=== PATIENT | male | born 1985 | race Two or more races ===

== ENCOUNTER 2019-05-25 19:55 | Emergency (ER) | payer SELFPAY ==
[~2019-05-25] VITALS: Ht 177.8 cm; Wt 102.1 kg
[2019-05-25 22:41] VITALS: BP 129/96
== END 2019-05-25 23:33 | disposition home or self-care (01) ==
LOC: ER 19:59
DX: S62.660A Nondisplaced fracture of distal phalanx of right index finger, initial encounter for closed fracture (principal); Z88.6 Allergy status to analgesic agent; Y08.89XA Assault by other specified means, initial encounter; Y93.89 Activity, other specified; Y99.8 Other external cause status; Y92.89 Other specified places as the place of occurrence of the external cause
CPT/HCPCS: 73130